=== PATIENT | male | born 1970 | race Caucasian/White ===

== ENCOUNTER 2020-12-17 09:29 | Day surgery (SDC) | payer MEDICAID ==
[2020-12-17] VITALS (9 sets, daily range): BP systolic 117–152; BP diastolic 82–106; PULSE 64–82; TEMP 98
[~2020-12-17] VITALS: Ht 165.1 cm; Wt 95.3 kg
[~2020-12-17 09:29] MED LIST: ZYLOPRIM 300MG300 MG PO
[2020-12-17 10:01] LABS: HEMATOCRIT 42.2 % (42.0-52.0); HEMOGLOBIN 13.8 g/dl (13.5-18.0); MEAN CELL VOLUME 85 fl (80.0-100.0); MEAN CORPUSCULAR HEMOGLOBIN 28 pg (27.0-31.0); MEAN CORPUSCULAR HGB CONC 33 g/dl (33.0-37.0); MEAN PLATELET VOLUME 9.2 fl (7.4-10.4); PLATELET COUNT 189 K/mm3 (130-400); RED BLOOD COUNT 4.98 M/mm3 (4.20-5.60); REDCELL DISTRIBUTION WIDTH-CV 13.7 % (11.5-14.5)
[2020-12-17 10:08] LABS: PROTHROMBIN TIME 10.8 SECONDS (9.7-12.8)
[2020-12-17 10:10] LABS: CREATININE, serum 1.07 (0.66-1.25); PARTIAL THROMBOPLASTIN TIME 28.2 SECONDS (26.0-37.0)
--- NOTE | 2020-12-17 12:00 | NUR ---
Report from Beba SOLOMON. Transferred from [employer] by bed. Alert and oriented, denies pain and needs at this time. Right Tband with 14 cc air CD&I, good pulses and cap refill < 3 secs noted. VSS. Spouse Penelope bedside.
--- NOTE | 2020-12-17 14:21 | NUR ---
Right Tband 13 cc air released and dressing placed at site. INT discontinued intact.
--- NOTE | 2020-12-17 14:25 | NUR ---
Discharge instructions given. Transferred to private car by mabel
== END 2020-12-17 14:25 | disposition home or self-care (01) ==
LOC: COL.CAR 09:29
PROVIDERS: Internal Medicine Cardiovascular Disease
DX: I77.1 Stricture of artery (principal); Z20.822 Contact with and (suspected) exposure to COVID-19; Z79.899 Other long term (current) drug therapy; Z88.8 Allergy status to other drugs, medicaments and biological substances
CPT/HCPCS: J1644; J2250; J3010; J7030